=== PATIENT | male | born 1985 | race Asian ===

== ENCOUNTER 2019-09-17 16:22 | Emergency (ER) | payer SELFPAY ==
[~2019-09-17] VITALS: Ht 162.6 cm; Wt 72.1 kg
[2019-09-17 17:17] VITALS: BP 108/61
[2019-09-17] MEDS ORDERED: ACETAMINOPHEN 500 MG TABLET PO ONE (17:30)
--- NOTE | 2019-09-17 17:47 | PHYS DOC ---
Past Medical History Past Medical History: No Pertinent History Past Surgical History: No Surgical History Smoking Status: Current Some Day Smoker Additional Information: CHEWS TOBACCO Alcohol Use: None Drug Use: None Adult General Chief Complaint Chief Complaint: FEVER HPI HPI Patient is a 33 year old male, accompanied by his mother, who presents to the emergency department with complaints of a fever since last night. In addition, patient complains of a headache, nasal congestion, dry cough, fatigue, and body aches. Patient denies any medical or surgical history. He states he does smoke cigarettes on occasion. He denies any alcohol or drug use. The patient states he has not taken any Tylenol or ibuprofen since last night. He denies any chest pain, nausea, vomiting, diarrhea, abdominal pain, vision changes, shortness of breath, or wheezing. He currently rates his discomfort 10/10 on the pain scale and describes the pain is generalized body aches. He denies any alleviating factors. Review of Systems Review of Systems All other ROS is negative unless otherwise noted in HPI. Current Medications Current Medications Current Medications Medications (Trade) Dose Ordered Sig/Bony Start Time Stop Time Status Last Admin Dose Admin Acetaminophen (Tylenol) 1,000 mg 1X ONCE 09/17/19 17:30 09/17/19 17:34 DC 09/17/19 17:34 1,000 MG Allergies Allergies Allergies Coded Allergies Type Severity Reaction Last Updated Verified No Known Drug Allergies 09/17/19 No Physical Exam Physical Exam See Above Constitutional: Well developed, well nourished, no acute distress, ill appearance HENT: Normocephalic, atraumatic, bilateral external ears normal, bilateral TMs normal, posterior pharynx normal oropharynx moist, nose congested with erythema and edema of the nasal turbinates bilaterally Eyes: PERRLA, conjunctiva injected bilaterally, no discharge. [] Neck: Normal range of motion, no stridor. [] Cardiovascular:Heart rate regular rhythm, no murmur [] Lungs & Thorax: Bilateral breath sounds clear to auscultation, Respirations even and unlabored, no retractions, no respiratory distress Skin: Warm, dry, no erythema, no rash. [] Back: No tenderness Extremities: No cyanosis, ROM intact Neurologic: Alert and oriented X 3, no focal deficits noted. [] Psychologic: Affect normal, judgement normal, mood normal. Current Patient Data Vital Signs Vital Signs Date Time Temp Pulse Resp B/P (MAP) Pulse Ox O2 Delivery O2 Flow Rate FiO2 09/17/19 17:17 101.1 58 17 108/61 (77) 99 Room Air 101.1 EKG EKG [] Radiology/Procedures Radiology/Procedures [] Course & Med Decision Making Course & Med Decision Making Pertinent Labs and Imaging studies reviewed. (See chart for details) dx: medical screening exam A medical screening exam was performed, patient was found to have a fever so 1 g of Tylenol was administered in the emergency department, there was no no emergent medical condition present. The patient was encouraged to alternate Tylenol and ibuprofen every 4-6 hours as needed for fever, recommend taking [id number] flu medications for relief of symptoms. The plan of care would've included a prescription for Tamiflu and influenza instructions. However, the patient eloped after talking with registration. [] [] Dragon Disclaimer Dragon Disclaimer This electronic medical record was generated, in whole or in part, using a voice recognition dictation system. Departure Departure Impression: Primary Impression: Encounter for medical screening examination Disposition: HOME, SELF-CARE (patient eloped after speaking with registration) Condition: STABLE Referrals: NO PCP (PCP) EMILY ADDISON APRN Sep 17, 2019 17:47
== END 2019-09-17 18:39 | disposition home or self-care (01) ==
LOC: ER 16:22
DX: R50.9 Fever, unspecified (principal); R51 Headache; R09.81 Nasal congestion; R53.83 Other fatigue; R05 Cough; F17.210 Nicotine dependence, cigarettes, uncomplicated
CPT/HCPCS: 99282